=== PATIENT | male | born 1950 | race Caucasian/White ===

== ENCOUNTER 2023-03-24 06:30 | Day surgery (SDC) | payer OTHER, BC ==
[2023-03-23 13:02] LABS: Absolute Lymphocytes (CBC) 1.1 K/uL (0.7-4.9); Lymphocytes % 15.1 % (15.3-44.8); MCV 89.9 fL (80-100); MPV 7.2 fL (7.6-11.3); Platelets 195 thou/uL (152-406); RBC Red Blood Cell Count 4.56 M/uL (4.33-5.43)
[2023-03-23 13:07] LABS: Protime INR 1.01
[2023-03-23 13:15] LABS: Potassium 3.9 mEq/L (3.5-5.1)
--- NOTE | 2023-03-23 13:40 | RAD REPORT ---
EXAM DESCRIPTION: RAD - Chest Pa And Lat (2 Views) - 03/23/2023 12:40 pm CLINICAL HISTORY: pre op pending heart catheterization. Hypertension COMPARISON: CHEST PA AND LAT 2 VIEW dated 06/17/2009 TECHNIQUE: PA and lateral views of the chest were obtained. FINDINGS: Patchy right basilar airspace opacity, appears to be along the middle lobe. Heart size is normal and central vasculature is within normal limits. No pleural effusion or pneumothorax seen. No acute bony finding noted. IMPRESSION: Patchy right basilar airspace opacity, may reflect atelectasis, pneumonia, with or witho ut a small subpulmonic effusion.
[~2023-03-24 06:30] MED LIST: ASPIRIN 325 MG TAB ONE; ATROPINE SULF 1 MG/10 ML SYR IV ONE; CLOPIDOGREL 75 MG TABLET ONE; FENTANYL CITR 100 MCG/2 ML ONE; HEPA 1000U/500MLS 2,000 UNIT/1,000 ML BAG IV ONE; HEPARIN 10,000 UNIT/10 ML VIAL IV ONE; HEPARIN 5000 UNIT/ML 1 ML VIAL ONE; LIDOCAINE 1% 20 ML MDV ONE; MIDAZOLAM HCL 2 MG/2 ML INJ ONE; NITROGLYCERIN 100 MCG/ML SYR (for cath lab use only) IV ONE; NITROGLYCERIN/D5W 25 MG/250 ML BTL IV ONE; TICAGRELOR 90 MG TABLET PO ONE; VERAPAMIL HCL 10 MG/4 ML VIAL IV ONE
[2023-03-24] MEDS ORDERED: NA CHLORIDE 0.9% 500 ML ONE (07:00)
[2023-03-24] MEDS ORDERED: FAMOTIDINE 20 MG TAB ONE (08:09)
--- NOTE | 2023-03-24 10:02 | OP ---
Date of Procedure: 03/24/2023 Surgeon: MATT PATEL Procedure Performed: 1.Selective coronary angiogram. 2.Left heart catheterization. 3.PCI of severe mid RCA stenosis using 3.0 x 28 mm Synergy drug-eluting stent. Indication: Chest pain with abnormal stress test. Access: Right radial artery 6-Mexican closed with TR band. Complications: None. Anesthesia: Total sedation time was 50 minutes. Used fentanyl and Versed. Description Of Procedure: After risks, benefits, and alternatives were explained, the patient agreed to procedure and signed informal consent. Patient was brought into the cardiac catheterization labo [facility], prepped and draped in usual sterile fashion. Then, I accessed the right radial artery using pediatric micropuncture kit and placed a 6-Mexican Slender sheath and I then took 5-Mexican Moriarty 4 cat heter over a J-wire into the aortic root and engaged the left main and took standard views, then RCA and took standard views, and the catheter was pushed over the wire into the LV, measured the LVEDP an d pullback, did not record any gradient. Then, I exchanged for a 6-Mexican JR4 guide and I gave syste spring heparin to assure ACT level above 250 and loaded with 600 mg of Plavix and 325 of aspirin. Then, I took a Runthrough wire into the RCA, placed it distally, and a 3.0 x 12 balloon. Lesion expanded very well and then I placed 3.0 x 28 mm Synergy drug-eluting stent across the mid and proximal part o f the RCA with excellent expansion and 0% residual stenosis. I then removed the wire and the guide a nd the sheath and placed TR band with good hemostasis. Findings: 1.Left main: Left main is very short but large and almost separate ostia of the LAD and the circumf tatiana. 2.LAD; large vessel, proximal luminal irregularities, mid to distal 60% with diagonal branches havin g luminal irregularities. 3.Left circumflex: It is a codominant circulation. OM branch has 50% proximal and 30% mid stenosis . The rest of the circ appears to be normal. 4.RCA is a codominant circulation with proximal 60%, mid 80%, and then 70% status post successful PC I as above, and then there is about 50% distally and the vessel becomes very small. 5.LVEDP normal at 9 mmHg. Conclusion: 1.Severe mid right coronary artery stenosis, status post successful percutaneous coronary interventi on as above. 2.Moderate coronary artery disease elsewhere. Plan: Aspirin, Plavix, high-dose statin, and a stress test in 6 months. SR/MODL Voice ID: [id number] Report ID: [id number]
[2023-03-24 11:36] VITALS: BP 154/92; O2SAT 98
--- NOTE | 2023-03-24 13:03 | EKG ---
Test Date: 2023-03-23 Test Time: 12:41:40 Hoop Flaring Machine Operator: SANJAY MEASUREMENT RESULTS: Intervals: Rate: 69 AR: 146 QRSD: 90 QT: 416 QTc: 445 [place]: P: 47 AR: 146 QRS: 55 T: 104 INTERPRETIVE STATEMENTS: Sinus rhythm with frequent premature ventricular complexes Nonspecific ST and T wave abnormality Abnormal ECG No previous ECG available for comparison Electronically Signed On 03-24-23 13:01:11 CDT by Levon Julio
== END 2023-03-24 11:56 | disposition home or self-care (01) ==
LOC: CCL 06:30
PROVIDERS: ATTEND Internal Medicine
DX: I25.10 Atherosclerotic heart disease of native coronary artery without angina pectoris (principal); I35.0 Nonrheumatic aortic (valve) stenosis; I10 Essential (primary) hypertension; E78.5 Hyperlipidemia, unspecified; Z87.891 Personal history of nicotine dependence; Z79.82 Long term (current) use of aspirin; Z79.899 Other long term (current) drug therapy; Z88.0 Allergy status to penicillin
CPT/HCPCS: 93005; 85025; 80048; 36415; 85610; 85347; 85730; 71046; 93458; 76937; C1893; Q9967; C1725; C9600; J1644; J2001; J2250; J3010; J7040; J0461

== ENCOUNTER 2024-03-27 07:30 | Day surgery (SDC) | payer OTHER, BC ==
[2024-03-23 11:52] LABS: Absolute Eosinophils 0.2 K/uL (0-0.5); Absolute Lymphocytes (CBC) 1.2 K/uL (0.7-4.9); Absolute Monocytes 0.4 K/uL (0.1-1.3); Absolute Neutrophil 5.5 K/uL (1.8-8.0); Basophils % 0.4 % (0-1.3); Eosinophils % 2.9 % (0-4.4); Hematocrit 39.8 % (39.6-49.0); Hemoglobin 13.7 g/dL (13.6-17.9); Lymphocytes % 16.3 % (15.3-44.8); MCH 30.4 pg (27.0-35.0); MCHC 34.4 g/dL (32.0-36.0); MCV 88.5 fL (80-100); MPV 7.5 fL (7.6-11.3); Monocytes % 5.8 % (3.3-12.3); Neutrophils % 74.6 % (41.7-73.7); Nucleated Red Blood Cells % 0.1 % (0-0); Platelets 200 thou/uL (152-406); Red Cell Distribution Width 14.4 % (12.1-15.2)
[2024-03-23 11:54] LABS: PT Prothrombin Time 11.2 SECONDS (9.4-12.5); PTT, Activated Partial Thromb 30.8 SECONDS (24.3-36.9)
[2024-03-23 12:00] LABS: Anion Gap 11.1 mEq/L (5.0-15.0); Potassium 4.1 mEq/L (3.5-5.1)
--- NOTE | 2024-03-23 12:54 | RAD REPORT ---
EXAM DESCRIPTION: [place] Pa And Lat (2 Views)03/23/2024 11:52 am CLINICAL HISTORY: Cough COMPARISON: 2022 FINDINGS: Mild patchy right basilar opacities are without significant change. Left lung appears clear of acute infiltrate The heart is normal size IMPRESSION: Mild patchy right basilar opacities without significant change. I suspect most of this i s chronic. If clinically indicated further evaluation with CT could be obtained
--- NOTE | 2024-03-26 12:59 | EKG ---
Test Date: 2024-03-23 Test Time: 11:20:57 Legal Support Assistant: BHAVYA MEASUREMENT RESULTS: Intervals: Rate: 80 GA: 130 QRSD: 100 QT: 398 QTc: 459 Portal: P: 18 GA: 130 QRS: 10 T: 55 INTERPRETIVE STATEMENTS: Normal sinus rhythm Normal ECG Compared to ECG 03/23/2023 12:41:40 Ventricular premature complex(es) no longer present ST (T wave) deviation no longer present Electronically Signed On 03-26-24 12:50:21 CDT by Levon Julio
[2024-03-27] MEDS ORDERED: NA CHLORIDE 0.9% 500 ML ONE (07:53)
[2024-03-27] MEDS ORDERED: MIDAZOLAM HCL 2 MG/2 ML INJ ONE (08:29)
[2024-03-27] MEDS ORDERED: ATROPINE SULF 1 MG/10 ML SYR IV ONE (08:29)
[2024-03-27] MEDS ORDERED: HEPA 1000U/500MLS 2,000 UNIT/1,000 ML BAG IV ONE (08:29)
[2024-03-27] MEDS ORDERED: LIDOCAINE 1% 20 ML MDV ONE (08:29)
[2024-03-27] MEDS ORDERED: HEPARIN 10,000 UNIT/10 ML VIAL IV ONE (08:29)
[2024-03-27] MEDS ORDERED: ASPIRIN 325 MG TAB ONE (08:30)
[2024-03-27] MEDS ORDERED: TICAGRELOR 90 MG TABLET PO ONE (08:30)
[2024-03-27] MEDS ORDERED: CLOPIDOGREL 75 MG TABLET ONE (08:30)
[2024-03-27] MEDS ORDERED: HEPARIN 5000 UNIT/ML 1 ML VIAL ONE (08:30)
[2024-03-27] MEDS ORDERED: FENTANYL CITR 100 MCG/2 ML ONE (08:30)
[2024-03-27 09:59] VITALS: TEMP 97.4
--- NOTE | 2024-03-27 10:50 | OP ---
Date of Procedure: 03/27/2024 Surgeon: Burke Doe Procedures Performed: 1.Left heart catheterization. 2.Selective coronary angiogram. Indication For Procedure: History of coronary artery disease with recent drop in ejection fraction a nd abnormal stress test. Complications: None. Estimated Blood Loss: Less than 50 cc. Access: Right radial, closed by TR band. Sedation Time: 20 minutes with 2 of Versed and 50 of fentanyl. Description Of Procedure: After risks, and benefits, and alternatives were explained to the patient, patient agreed to proceed with procedure and signed informed consent. The patient was brought back to the director of cath lab, prepped and draped in sterile fashion. Time-out was performed. Sedation was admini stered. Next, the right radial access was obtained using ultrasound-guided micropuncture technique. [place] 4.0 catheter was advanced over a J-wire to the LV cavity. LVEDP was obtained. Pullback did n ot show any gradient. Selective angiogram was done using the same catheter. At the end of procedure , catheter was pulled back to the aortic root. Nonselective angiogram was done of the left subclavia n artery and the DESOUZA artery. At the end of procedure, catheter was removed over a J-wire. Sheath w as removed. TR band was applied. Hemostasis was achieved and patient was moved back to recovery in stable condition. Findings: 1.Left main; short, almost separate ostia. 2.LAD; proximal mild luminal irregularities and mid focal calcified 70% to 80% disease followed by m ild luminal irregularities with a mid to distal 40% disease and mild luminal irregularities. 3.Left circ; mild luminal irregularities. 4.OM1; ostial/proximal 60% disease and mild luminal irregularities. 5.OM2; proximal to mid diffuse 80% disease and mild luminal irregularities. 6.RCA; proximal mild luminal irregularities. Mid stent patent with the proximal edge 30% ISR and th en mid 70% disease at the edge of the stent followed by distal 70% disease. 7.RPDA; 2.25 mm vessel with mild luminal irregularities. 8.LVEDP is 4 mmHg. 9.Left subclavian/DESOUZA is patent. Assessment And Plan: Significant mid LAD, OM1, OM2, mid and distal RCA disease. The plan will be to consult CT Surgery for evaluation for a bypass. MALHOTRA/MODL Voice ID: [id number] Report ID: [id number]
[2024-03-27 12:23] VITALS: BP 157/80; O2SAT 97
== END 2024-03-27 12:15 | disposition home or self-care (01) ==
LOC: CCL 07:30
PROVIDERS: ATTEND Internal Medicine Interventional Cardiology
DX: I25.10 Atherosclerotic heart disease of native coronary artery without angina pectoris (principal); T82.855A Stenosis of coronary artery stent, initial encounter; I10 Essential (primary) hypertension; E78.2 Mixed hyperlipidemia; Z87.891 Personal history of nicotine dependence; Z79.02 Long term (current) use of antithrombotics/antiplatelets; Z79.82 Long term (current) use of aspirin; Z79.899 Other long term (current) drug therapy; Z88.0 Allergy status to penicillin
CPT/HCPCS: 93005; 85025; 80048; 36415; 85610; 85730; 71046; 93458; 76937; C1893; Q9966; J1644; J2001; J2250; J3010; J7040; 82947; 99152; J0461

== ENCOUNTER 2024-04-25 14:20 | Emergency (ER) | payer OTHER, BC ==
[2024-04-25] MEDS ORDERED: TDAP (DIPHTH,PERTUSS(ACELL),TET VAC) 0.5 ML VIAL IMVAC ONE (14:38)
[2024-04-25] MEDS ORDERED: LIDOCAINE 1% MPF 5 ML VIAL ONE (14:42)
[2024-04-25] MEDS ORDERED: DERMABOND SKIN ADHESIVE TOP ONE (14:51)
--- NOTE | 2024-04-25 14:55 | ER ---
Nurse's Notes [facility] Name: Dakota Gonzalez Age: 73 yrs Sex: Male : 1950 Arrival Date: 04/25/2024 Time: 14:20 Bed 12 Private MD: Diagnosis: Laceration without foreign body of other finger without damage to nail Presentation: 04/25 14:26 Coronavirus screen: Client denies travel out of the [place] in the last 14 days. At this ll1 time, the client does not indicate any symptoms associated with coronavirus-19. Ebola Screen: Patient denies travel to an Ebola-affected area in the 21 days before illness onset. Complicating Factors: There are no complicating factors for this patient. Initial Sepsis Screen: Does the patient meet any 2 criteria? No. Patient's initial sepsis screen is negative. Does the patient have a suspected source of infection? No. Patient's initial sepsis screen is negative. Risk Assessment: Do you want to hurt yourself or someone else? Patient reports no desire to harm self or others. Onset of symptoms was April 25, 2024. 14:26 Method Of Arrival: Ambulatory ll1 14:26 Acuity: SHELLY 3 ll1 14:26 Chief complaint: Patient states: LEFT INDEX FINGER LAC. bp Triage Assessment: 14:31 General: Appears in no apparent distress. Behavior is calm, cooperative, appropriate ll1 for age. Pain: Complains of pain in left hand Quality of pain is described as aching. Derm: <1 cm laceration L hand 2nd digit. Injury Description: Laceration sustained to left hand. Historical: - Allergies: 14:26 No Known Allergies; ll1 - PMHx: 14:26 Diabetes mellitus; Hypertensive disorder; Hypercholesterolemia; Coronary ll1 atherosclerosis; - PSHx: 14:26 2 heart stents; R lobectomy; ll1 - Immunization history:: Adult Immunizations up to date, Last tetanus immunization: < 5 years ago. - Infectious Disease History:: Denies. - Social history:: Smoking status: Patient denies any tobacco usage or history of. Screenin:30 [facility] ED Fall Risk Assessment (Adult) History of falling in the last 3 months, bp including since admission No falls in past 3 months (0 pts) Confusion or Disorientation No (0 pts) Intoxicated or Sedated No (0 pts) Impaired Gait No (0 pts) Mobility Assist Device Used No (0 pt) Altered Elimination No (0 pt) Score/Fall Risk Level 0 - 2 = Low Risk. Abuse screen: Denies threats or abuse. Denies injuries from another. Nutritional screening: No deficits noted. Tuberculosis screening: No symptoms or risk factors identified. Assessment: 14:30 General: Appears in no apparent distress. Behavior is calm, cooperative, appropriate bp for age. Pain: Complains of pain in left hand. Neuro: No deficits noted. Cardiovascular: No deficits noted. Respiratory: No deficits noted. GI: No signs and/or symptoms were reported involving the gastrointestinal system. : No signs and/or symptoms were reported regarding the genitourinary system. EENT: No deficits noted. Derm: No deficits noted. Musculoskeletal: Circulation, motion, and sensation intact. Range of motion: intact in all extremities. Injury Description: Laceration sustained to left hand is superficial. Vital Signs: 14:26 BP 143 / 75; Pulse 74; Resp 16; Temp 97.6; Pulse Ox 99% ; Weight 87.54 kg; Height 5 ft. ll1 7 in. ; Pain 1/10; 14:26 Body Mass Index 30.23 (87.54 kg, 170.18 cm) ll1 14:26 Pain Scale: Adult ll1 ED Course: 14:22 Patient arrived in ED. mg5 14:27 Triage completed. ll1 14:30 Terry Olson PA is PHCP. cp 14:30 Terry Bueno MD is Attending Physician. cp 14:30 Patient has correct armband on for positive identification. bp 14:42 Greg Hare, SHADI is Primary Nurse. bp 14:54 No provider procedures requiring assistance completed. Patient did not have IV access bp during this emergency room visit. Wound care: to laceration located on left hand was cleaned with Betadine, dressed with DERMABOND, Patient tolerated well. 14:56 Provided Education on: N/A. bp 14:56 Patient N/A. bp Administered Medications: 14:42 Drug: Boostrix Tdap IM 0.5 ml IM once; as a single dose Route: IM; Site: left deltoid; bp 14:42 Follow up: Response: No adverse reaction bp Medication: 14:56 VIS not applicable for this client. bp Outcome: 14:54 Discharge ordered by . cp 14:54 Discharged to home ambulatory, bp 14:54 Condition: stable 14:54 Discharge instructions given to patient, Instructed on discharge instructions, follow up and referral plans. wound care, Demonstrated understanding of instructions, follow-up care, wound care, 15:00 Patient left the ED. bp Signatures: Terry Olson PA PA cp Peltier, Brian, RN RN Lalita Peña RN RN ll1 Selma Devlin mg5
--- NOTE | 2024-04-25 14:55 | EDPHYS ---
Physician Documentation [facility] Name: Dakota Gonzalez Age: 73 yrs Sex: Male : 1950 Arrival Date: 04/25/2024 Time: 14:20 Bed 12 Private MD: ED Physician Terry Bueno HPI: 04/25 14:35 This 73 yrs old Male presents to ER via Ambulatory with complaints of Laceration - cp FINGER. 14:35 The patient or guardian reports a laceration, clean. The complaints affect the left cp index finger. 14:35 Context: resulted from a direct blow, while using machete. Onset: The symptoms/episode cp began/occurred just prior to arrival. Associated signs and symptoms: Pertinent positives: moderate bleeding. Severity of symptoms: in the emergency department the symptoms less bleeding after patient applied pressure dressing. Historical: - Allergies: 14:26 No Known Allergies; ll1 - PMHx: 14:26 Diabetes mellitus; Hypertensive disorder; Hypercholesterolemia; Coronary ll1 atherosclerosis; - PSHx: 14:26 2 heart stents; R lobectomy; ll1 - Immunization history:: Adult Immunizations up to date, Last tetanus immunization: < 5 years ago. - Infectious Disease History:: Denies. - Social history:: Smoking status: Patient denies any tobacco usage or history of. ROS: 14:40 Constitutional: HX per hpi cp 14:40 MS/extremity: Positive for laceration, of the left index finger, Negative for decreased range of motion, deformity, paresthesias, 14:40 All other systems are negative, Exam: 14:45 Constitutional: The patient appears in no acute distress, alert, awake, non-toxic, well cp developed, well nourished, 14:45 Head/Face: Normocephalic, atraumatic. cp 14:45 Chest/axilla: Inspection: normal, 14:45 Cardiovascular: Rate: normal, 14:45 Respiratory: the patient does not display signs of respiratory distress, Respirations: normal, 14:45 Musculoskeletal/extremity: Extremities: noted in the left index finger: laceration, tenderness, scant active bleeding, laceration approximately 1.5 cm length, There is no evidence of decreased ROM, deformity, ROM: full active range of motion, in the left index finger, Perfusion: the extremity is normally perfused throughout, the left index finger Sensation intact. Tendon exam: specific tendon testing normal through active and passive range of motion 14:45 Neuro: Orientation: to person, place \T\ time. Mentation: is normal, Vital Signs: 14:26 BP 143 / 75; Pulse 74; Resp 16; Temp 97.6; Pulse Ox 99% ; Weight 87.54 kg; Height 5 ft. ll1 7 in. ; Pain 1/10; 14:26 Body Mass Index 30.23 (87.54 kg, 170.18 cm) ll1 14:26 Pain Scale: Adult ll1 Laceration: 14:55 Wound Repair of 1.5cm ( 0.6in ) subcutaneous laceration to proximal phalanx radial side cp of left index finger. Linear shaped.. Distal neuro/vascular/tendon intact. Wound prep: Simple cleansing by me. Skin closed with thin layer Adhesive skin closure using Dermabond. Dressed with 4x4's. Patient tolerated well. MDM: 14:30 Medical Screening Exam initiated cp 14:54 Data reviewed: vital signs, nurses notes, and as a result, I will discharge patient. cp 14:54 Differential diagnosis: dislocation, open fracture, closed fracture, contusion, simple cp laceration. I considered the following discharge prescriptions or medication management in the emergency department Medications were administered in the Emergency Department. See MAR. Counseling: I had a detailed discussion with the patient and/or guardian regarding the historical points, exam findings, and any diagnostic results supporting the discharge/admit diagnosis, to return to the emergency department if symptoms worsen or persist or if there are any questions or concerns that arise at home. Response to treatment: the patient's symptoms have markedly improved after treatment, and as a result, I will discharge patient. 04/25 14:35 Order name: Wound Care; Complete Time: 14:42 cp 04/25 14:50 Order name: Dermabond; Complete Time: 14:54 cp Administered Medications: 14:42 Drug: Boostrix Tdap IM 0.5 ml IM once; as a single dose Route: IM; Site: left deltoid; bp 14:42 Follow up: Response: No adverse reaction bp Disposition Summary: 04/25/24 14:54 Discharge Ordered Notes: Location: Home cp Problem: new cp Symptoms: have improved cp Condition: Stable cp Diagnosis - Laceration without foreign body of other finger without damage to nail cp Followup: cp - With: Private Physician - When: 2 - 3 days - Reason: Worsening of condition Discharge Instructions: - Discharge Summary Sheet cp - Nonsutured Laceration Care cp Forms: - Medication Reconciliation Form cp - Antibiotic Education cp - Prescription Opioid Use cp - Patient Portal Instructions cp - Leadership Thank You Letter cp Signatures: Terry Olson PA PA cp Peltier, Brian, RN RN bp Lalita Carroll RN RN ll1 Corrections: (The following items were deleted from the chart) 04/26 13:50 04/25 14:30 MS/extremity: Positive for laceration, of the left index finger, Negative cp for decreased range of motion, deformity, paresthesias, cp 04/26 13:50 10 14:30 Constitutional: HX per hpi cp cp 04/26 13:50 04/25 14:30 All other systems are negative, cp cp 04/26 13:53 04/25 14:45 Musculoskeletal/extremity: Extremities: noted in the left index finger: cp laceration, tenderness, scant active bleeding, There is no evidence of decreased ROM, deformity, ROM: full active range of motion, in the left index finger, Perfusion: the extremity is normally perfused throughout, the left index finger Sensation intact. Tendon exam: specific tendon testing normal through active and passive range of motion cp
[2024-04-25 17:04] VITALS: BP 143/75; TEMP 97.6; O2SAT 99
== END 2024-04-25 15:00 | disposition home or self-care (01) ==
LOC: ER 14:20
DX: S61.211A Laceration without foreign body of left index finger without damage to nail, initial encounter (principal); E11.9 Type 2 diabetes mellitus without complications; I10 Essential (primary) hypertension; Z95.818 Presence of other cardiac implants and grafts
CPT/HCPCS: 96372; 99284; 12001; J2001

== ENCOUNTER 2024-10-01 19:11 | Emergency (ER) | payer OTHER, BC ==
--- NOTE | 2024-10-01 19:59 | RAD REPORT ---
EXAMINATION: ONE VIEW CHEST XR CLINICAL INDICATION: CHEST PAIN TECHNIQUE: Frontal chest projection is submitted. Examination is limited by patient positioning and t echnique. COMPARISON: 03/23/2024 FINDINGS: Mild interstitial pulmonary opacities in both lower lungs may represent mild edema or bronchitis. Chr onic right pleural scarring suspected. The heart is upper limit of normal in size. No displaced fractures identified.
[2024-10-01 20:08] LABS: Absolute Basophils 0.1 K/uL (0-0.5); Absolute Eosinophils 0.2 K/uL (0-0.5); Absolute Lymphocytes (CBC) 1.7 K/uL (0.7-4.9); Absolute Monocytes 0.6 K/uL (0.1-1.3); Absolute Neutrophil 4.7 K/uL (1.8-8.0); Eosinophils % 3.1 % (0-4.4); Hematocrit 40.9 % (39.6-49.0); Hemoglobin 14.2 g/dL (13.6-17.9); Lymphocytes % 23.1 % (15.3-44.8); MCH 30.6 pg (27.0-35.0); MCHC 34.8 g/dL (32.0-36.0); MCV 87.8 fL (80-100); MPV 7.1 fL (7.6-11.3); Monocytes % 7.7 % (3.3-12.3); Neutrophils % 65.1 % (41.7-73.7); Nucleated Red Blood Cells % 0.1 % (0-0); Platelets 220 thou/uL (152-406); RBC Red Blood Cell Count 4.66 M/uL (4.33-5.43); Red Cell Distribution Width 14.2 % (12.1-15.2)
[2024-10-01 20:13] LABS: PT Prothrombin Time 11.5 SECONDS (10-13.0); Protime INR 1.01
[2024-10-01 20:27] LABS: ALT/SGPT 45 U/L (16-61); AST/SGOT 21 U/L (15-37); Albumin 3.6 g/dL (3.4-5.0); Albumin/Globulin Ratio 0.9 (1.1-1.8); Alkaline Phosphatase 87 U/L (45-117); Anion Gap 8.9 mEq/L (5.0-15.0); BUN Blood Urea Nitrogen 13 mg/dL (7-18); Bicarbonate 26 mEq/L (21-32); Bilirubin Total 0.4 mg/dL (0.2-1.0); Globulin 3.8 g/dL (2.3-3.5); Glomerular Filtration Rate 86 ml/min (=/>90); Glucose Level 173 mg/dL (74-106); Magnesium 1.7 mg/dL (1.6-2.4); NT PRO-BNP 502 pg/mL (<125); Potassium 3.9 mEq/L (3.5-5.1); Protein, Total 7.4 g/dL (6.4-8.2); Sodium Level 140 mEq/L (136-145); Troponin High Sensitivity 11.7 pg/mL (<58.9)
[2024-10-01 20:28] LABS: Bilirubin Direct < 0.2 mg/dL (0-0.2); Bilirubin Indirect, Calculated 0.2 mg/dL (0.2-0.8)
--- NOTE | 2024-10-01 22:36 | EDPHYS ---
Physician Documentation [facility] Name: Dakota Gonzalez Age: 74 yrs Sex: Male : 1950 Arrival Date: 10/01/2024 Time: 19:11 Bed 8 Private MD: ED Physician Terry Bueno HPI: 10/01 19:52 This 74 yrs old Male presents to ER via Ambulatory with complaints of Chest Pain. sb4 19:52 Patient reports substernal chest pain that began 1 hour prior to arrival while just sb4 sitting. He describes the pain as a dull/achy sensation. Has a significant cardiac history of 5 stents, last stent placed 1 month ago. States that he is compliant with his Plavix and aspirin. 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 States the pain does not radiate, denies any nausea, dizziness, shortness of breath. States that his pain has mostly resolved now, is in no acute distress. Historical: - Allergies: 19:31 PENICILLINS; dd2 - PMHx: 19:31 coronary atherosclerosis; diabetes mellitus; Hypercholesterolemia; Hypertensive dd2 disorder; Myocardial infarction; - PSHx: 19:31 5 HEART STENTS (2 heart stents); RT LUNG LOBECTOMY (2 heart stents); dd2 - Immunization history:: Adult Immunizations up to date, Client reports receiving the 2nd dose of the Covid vaccine, Flu vaccine is up to date. - Infectious Disease History:: Denies. - Social history:: Smoking status: Patient denies any tobacco usage or history of. ROS: 19:52 Constitutional: Negative for fever, chills, and weight loss, sb4 19:52 Cardiovascular: Positive for chest pain, 19:52 All other systems are negative, Exam: 19:52 Constitutional: This is a well developed, well nourished patient who is awake, alert, sb4 and in no acute distress. Head/Face: Normocephalic, atraumatic. Eyes: Extra-ocular motions intact. Periorbital areas with no swelling, redness, or edema. ENT: Mucous membranes moist. Cardiovascular: Regular rate and rhythm with a normal S1 and S2. Respiratory: No increased work of breathing, no retractions or nasal flaring. Abdomen/GI: Soft, non-tender, no distension. Skin: Warm, dry with normal turgor. Normal color with no rashes, no lesions, and no evidence of cellulitis. Vital Signs: 19:20 BP 165 / 92; Pulse 75; Resp 16; Temp 98.4(O); Pulse Ox 100% on R/A; Weight 88.9 kg; dd2 Height 5 ft. 8 in. ; Pain 7/10; 19:30 BP 163 / 79; Pulse 70; Resp 18; Pulse Ox 97% ; al5 20:00 BP 137 / 94; Pulse 66; Resp 21; Pulse Ox 98% ; al5 20:30 BP 153 / 84; Pulse 62; Resp 23; Pulse Ox 97% ; al5 21:00 BP 159 / 84; Pulse 60; Resp 20; Pulse Ox 97% ; al5 21:30 BP 135 / 92; Pulse 58; Resp 20; Pulse Ox 96% ; al5 22:00 BP 148 / 86; Pulse 60; Resp 16; Pulse Ox 97% ; al5 19:20 Body Mass Index 29.80 (88.90 kg, 172.72 cm) dd2 19:20 Pain Scale: Adult dd2 MDM: 19:36 Medical Screening Exam initiated sb4 22:34 Data reviewed: vital signs, nurses notes, lab test result(s), EKG, radiologic studies, sb4 and as a result, I will discharge patient. Consideration of Admission/Observation Escalation of care including admission/observation considered. Counseling: I had a detailed discussion with the patient and/or guardian regarding the historical points, exam findings, and any diagnostic results supporting the discharge/admit diagnosis, lab results, radiology results, the need for outpatient follow up, a sheepskin pickler, to return to the emergency department if symptoms worsen or persist or if there are any questions or concerns that arise at home. 10/01 19:37 Order name: Basic Metabolic Panel; Complete Time: 20:29 sb4 10/01 19:37 Order name: CBC with Diff; Complete Time: 20:17 sb4 10/01 19:37 Order name: LFT's; Complete Time: 20:29 sb4 10/01 19:37 Order name: Magnesium; Complete Time: 20:29 sb4 10/01 19:37 Order name: NT PRO-BNP; Complete Time: 20:29 sb4 10/01 19:37 Order name: PT-INR; Complete Time: 20:14 sb4 10/01 19:37 Order name: Troponin HS; Complete Time: 20:29 sb4 10/01 21:52 Order name: Troponin High Sensitivity; Complete Time: 22:34 sb4 10/01 19:37 Order name: XRAY Chest (1 view); Complete Time: 20:00 sb4 10/01 19:37 Order name: Cardiac monitoring; Complete Time: 20:16 sb4 10/01 19:37 Order name: EKG - Nurse/Tech; Complete Time: 20:16 sb4 10/01 19:37 Order name: IV Saline Lock; Complete Time: 20:06 sb4 10/01 19:37 Order name: Labs collected and sent; Complete Time: 20:06 sb4 10/01 19:37 Order name: O2 Per Protocol; Complete Time: 21:02 sb4 10/01 19:37 Order name: O2 Sat Monitoring; Complete Time: 20:16 sb4 10/01 19:41 Order name: Misc. Order: repeat trop at 2200; Complete Time: 22:12 sb4 EC:15 Rate is 62 beats/min. Rhythm is regular, Sinus Rhythm with Occasional PVCs. CT interval sb4 is normal at 146 msec. QRS interval is normal at 98 msec. QT interval is normal at 448 msec. No Q waves. T waves are Normal. No ST changes noted. Clinical impression: Normal ECG. Interpreted by me. Reviewed by me. Administered Medications: 19:41 CANCELLED (Physician Discretion): aspirinchewable tablet 324 mg PO once; 81 mg tablets sb4 x 4 Disposition Summary: 10/01/24 22:36 Discharge Ordered Notes: Location: Home sb4 Problem: new sb4 Symptoms: have improved sb4 Condition: Stable sb4 Diagnosis - Chest pain, unspecified sb4 Followup: sb4 - With: Emergency Department - When: As needed - Reason: Trouble breathing, Worsening of condition Discharge Instructions: - Discharge Summary Sheet sb4 - Nonspecific Chest Pain, Adult, [id number] sb4 Forms: - Patient Portal Instructions sb4 - Leadership Thank You Letter sb4 Addendum: 10/03/2024 15:34 Co-signature as Attending Physician, Terry Bueno MD I agree with the assessment and c leblanc plan of care. Signatures: Dispatcher [employer] EDTerry Cobian MD MD cha Brown, Sophia, PA-C PARocaelC sb4 HECTOR, ISIDRO, RN RN dd2 Corrections: (The following items were deleted from the chart) 10/01 19:33 19:31 PSHx: 2 heart stents; dd2 dd2 19:37 19:37 BASIC METABOLIC PANEL+C.LAB.BRZ ordered. EDMS EDMS 19:37 19:37 CBC+H.LAB.BRZ ordered. EDMS EDMS 19:37 19:37 HEPATIC FUNCTION+C.LAB.BRZ ordered. EDMS EDMS 19:37 19:37 MAGNESIUM+C.LAB.BRZ ordered. EDMS EDMS 19:37 19:37 PROBNP+C.LAB.BRZ ordered. EDMS EDMS 19:37 19:37 PROTIME (+INR)+COAG.LAB.BRZ ordered. EDMS EDMS 19:37 19:37 Troponin High Sensitivity+C.LAB.BRZ ordered. EDMS EDMS 19:37 19:37 Chest Single View+RAD.RAD.BRZ ordered. EDMS EDMS 19:41 19:37 Aspirin PO Chewable Tablet 324 mg PO once; 81 mg tablets x 4 ordered. sb4 sb4
--- NOTE | 2024-10-01 22:36 | ER ---
Nurse's Notes [facility] Name: Dakota Gonzalez Age: 74 yrs Sex: Male : 1950 Arrival Date: 10/01/2024 Time: 19:11 Bed 8 Private MD: Diagnosis: Chest pain, unspecified Presentation: 10/01 19:20 Chief complaint: Patient states: CHEST PAIN THAT STARTED 1 HOUR AGO. Coronavirus dd2 screen: At this time, the client does not indicate any symptoms associated with coronavirus-19. Ebola Screen: No symptoms or risks identified at this time. Initial Sepsis Screen: Does the patient meet any 2 criteria? No. Patient's initial sepsis screen is negative. Does the patient have a suspected source of infection? No. Patient's initial sepsis screen is negative. Risk Assessment: Do you want to hurt yourself or someone else? Patient reports no desire to harm self or others. Onset of symptoms was October 01, 2024. 19:20 Method Of Arrival: Ambulatory dd2 19:20 Acuity: SHELLY 3 dd2 Triage Assessment: 19:31 General: Appears in no apparent distress. uncomfortable, Behavior is calm, cooperative, dd2 appropriate for age. Pain: Complains of pain in mid-sternal area Pain does not radiate. Pain currently is 7 out of 10 on a pain scale. Quality of pain is described as aching, sharp. EENT: No deficits noted. No signs and/or symptoms were reported regarding the EENT system. Neuro: No deficits noted. Grayson Agitation-Sedation Scale (RASS): 0 - Alert and Calm Level of Consciousness is awake, alert, obeys commands, Oriented to person, place, time, situation, Appropriate for age. Cardiovascular: Reports chest pain, Denies lightheadedness, palpitations, shortness of breath, Heart tones S1 S2 present JVD is absent Patient's skin is warm and dry. Respiratory: No deficits noted. Airway is patent Respiratory effort is even, unlabored, Respiratory pattern is regular, symmetrical. GI: No deficits noted. No signs and/or symptoms were reported involving the gastrointestinal system. Abdomen is non-distended, Abd is soft and non tender X 4 quads. : No deficits noted. No signs and/or symptoms were reported regarding the genitourinary system. Derm: No deficits noted. No signs and/or symptoms reported regarding the dermatologic system. Musculoskeletal: No deficits noted. No signs and/or symptoms reported regarding the musculoskeletal system. Circulation, motion, and sensation intact. Range of motion: intact in all extremities. Historical: - Allergies: 19:31 PENICILLINS; dd2 - PMHx: 19:31 coronary atherosclerosis; diabetes mellitus; Hypercholesterolemia; Hypertensive dd2 disorder; Myocardial infarction; - PSHx: 19:31 5 HEART STENTS (2 heart stents); RT LUNG LOBECTOMY (2 heart stents); dd2 - Immunization history:: Adult Immunizations up to date, Client reports receiving the 2nd dose of the Covid vaccine, Flu vaccine is up to date. - Infectious Disease History:: Denies. - Social history:: Smoking status: Patient denies any tobacco usage or history of. Screenin:59 [facility] ED Fall Risk Assessment (Adult) History of falling in the last 3 months, al5 including since admission No falls in past 3 months (0 pts) Confusion or Disorientation No (0 pts) Intoxicated or Sedated No (0 pts) Impaired Gait No (0 pts) Mobility Assist Device Used No (0 pt) Altered Elimination No (0 pt) Score/Fall Risk Level 0 - 2 = Low Risk Oriented to surroundings, Maintained a safe environment, Hourly rounding (assess needs \T\ fall precautionary measures) done. Abuse screen: Denies threats or abuse. Denies injuries from another. Nutritional screening: No deficits noted. Tuberculosis screening: No symptoms or risk factors identified. Assessment: 20:58 General: Appears in no apparent distress. comfortable, Behavior is calm, cooperative. al5 Pain: Complains of pain in mid-sternal area Pain currently is 2 out of 10 on a pain scale. Neuro: Level of Consciousness is awake, alert, obeys commands, Oriented to person, place, time, situation. Cardiovascular: Capillary refill < 3 seconds Patient's skin is warm and dry. Rhythm is sinus rhythm. Respiratory: Airway is patent Respiratory effort is even, unlabored, Respiratory pattern is regular, symmetrical. GI: No signs and/or symptoms were reported involving the gastrointestinal system. : No signs and/or symptoms were reported regarding the genitourinary system. EENT: No signs and/or symptoms were reported regarding the EENT system. Derm: Skin is intact, is healthy with good turgor, Skin is pink, warm \T\ dry. normal. Musculoskeletal: No deficits noted. 22:17 Reassessment: Patient appears in no apparent distress at this time. No changes from al5 previously documented assessment. Patient and/or family updated on plan of care and expected duration. Pain level reassessed. Patient is alert, oriented x 3, equal unlabored respirations, skin warm/dry/pink. Vital Signs: 19:20 BP 165 / 92; Pulse 75; Resp 16; Temp 98.4(O); Pulse Ox 100% on R/A; Weight 88.9 kg; dd2 Height 5 ft. 8 in. ; Pain 7/10; 19:30 BP 163 / 79; Pulse 70; Resp 18; Pulse Ox 97% ; al5 20:00 BP 137 / 94; Pulse 66; Resp 21; Pulse Ox 98% ; al5 20:30 BP 153 / 84; Pulse 62; Resp 23; Pulse Ox 97% ; al5 21:00 BP 159 / 84; Pulse 60; Resp 20; Pulse Ox 97% ; al5 21:30 BP 135 / 92; Pulse 58; Resp 20; Pulse Ox 96% ; al5 22:00 BP 148 / 86; Pulse 60; Resp 16; Pulse Ox 97% ; al5 19:20 Body Mass Index 29.80 (88.90 kg, 172.72 cm) dd2 19:20 Pain Scale: Adult dd2 ED Course: 19:20 Patient arrived in ED. gm2 19:31 Triage completed. dd2 19:31 Arm band placed on right wrist. Patient placed in an exam room, on a stretcher, on dd2 pulse oximetry. 19:36 Ruma Garcia PA-C is PHCP. sb4 19:36 Terry Bueno MD is Attending Physician. sb4 19:56 XRAY Chest (1 view) In Process Unspecified. EDMS 20:05 Inserted saline lock: 20 gauge in right forearm, using aseptic technique. Blood mm11 collected. Flushed with 10 mL NS. 20:06 Basic Metabolic Panel Sent. mm11 20:06 CBC with Diff Sent. mm11 20:06 LFT's Sent. mm11 20:06 Magnesium Sent. mm11 20:06 NT PRO-BNP Sent. mm11 20:06 PT-INR Sent. mm11 20:06 Troponin HS Sent. mm11 20:15 EKG done, by ED staff, reviewed by Ruma Garcia PA-C. mm11 20:51 No provider procedures requiring assistance completed. Patient maintains SpO2 al5 saturation greater than 95% on room air. 20:59 Patient has correct armband on for positive identification. Bed in low position. Call al5 light in reach. Side rails up X 1. Provided Education on: wait time for results. Client placed on continuous cardiac and pulse oximetry monitoring. NIBP monitoring applied. quality assurance monitor final on. 21:02 Amanda Montoya, RN is Primary Nurse. al5 22:41 IV discontinued, intact, bleeding controlled, No redness/swelling at site. Pressure al5 dressing applied. Administered Medications: 19:41 CANCELLED (Physician Discretion): aspirinchewable tablet 324 mg PO once; 81 mg tablets sb4 x 4 Medication: 20:59 VIS not applicable for this client. al5 Outcome: 22:36 Discharge ordered by MD. sb4 22:41 Discharged to home ambulatory, al5 22:41 Condition: good 22:41 Discharge instructions given to patient, Instructed on discharge instructions, follow up and referral plans. Demonstrated understanding of instructions, follow-up care, 23:04 Patient left the ED. al5 Signatures: Dispatcher [employer] EDMS Ruma Garcia PA-C PA-C sb4 Yarely Thomas gm2 Amanda Montoya, SHADI RN al5 ISIDRO YOUNG RN RN dd2 lily gusman mm11 Corrections: (The following items were deleted from the chart) 19:33 19:31 PSHx: 2 heart stents; dd2 dd2
[2024-10-02 00:02] VITALS: TEMP 98.4
[2024-10-02 00:26] VITALS: BP 148/86; O2SAT 97
== END 2024-10-01 23:04 | disposition home or self-care (01) ==
LOC: ER 19:11
DX: R07.9 Chest pain, unspecified (principal); I10 Essential (primary) hypertension; I25.2 Old myocardial infarction; Z95.818 Presence of other cardiac implants and grafts; Z79.01 Long term (current) use of anticoagulants; Z79.82 Long term (current) use of aspirin
CPT/HCPCS: 36415; 71045; 80048; 80076; 83735; 83880; 84484; 85025; 85610; 93005; 99284